=== PATIENT | female | born 1970 | race Two or more races ===

== ENCOUNTER 2024-01-20 14:03 | Emergency (ER) | payer MEDICAID, OTHER ==
[~2024-01-20] VITALS: Ht 152.4 cm; Wt 61.0 kg
[2024-01-20 14:25] VITALS: BP 134/78; RESP 16; TEMP 98.2; O2SAT 100
[2024-01-20 14:27] VITALS: PULSE 77
[2024-01-20] MEDS ORDERED: IBUP-2029 MT (15:42)
== END 2024-01-20 15:59 | disposition home or self-care (01) ==
LOC: ER 14:03
DX: M25.522 Pain in left elbow (principal); E78.00 Pure hypercholesterolemia, unspecified; Z90.710 Acquired absence of both cervix and uterus
CPT/HCPCS: 73060; 99283